=== PATIENT | female | born 1985 | race Caucasian/White ===

== ENCOUNTER 2022-11-13 22:35 | Emergency (ER) | payer OTHER, SELFPAY ==
[2022-11-13 22:47] VITALS: BP 141/99; PULSE 68; RESP 16; TEMP 36.4; O2SAT 100
--- NOTE | 2022-11-13 23:36 | ED_ITS ---
HPI - Headache General Chief Complaint: Headache Stated Complaint: Migraine, Vomiting Time Seen by Provider: 11/13/22 23:35 Source: patient Mode of arrival: Ambulatory Limitations: no limitations History of Present Illness HPI Narrative: This is a 37-year-old female with history of migraine, a single seizure 10 years ago on Lamictal, anxiety/depression and hypertension. Patient notes she did start lisinopril 2 days ago as her blood pressures been elevated recently. She is had more frequent migraines with about 1 weekly for the past 2 or 3 weeks. She does follow with neurologist annually in [place] where she lives. Patient states no fevers or chills. Typical location of headache although migraine little bit farther back. The intensity is its typical but will not break or stop. She had vomiting today. She is not had any diarrhea but she states last 2 prior seizures she had bodily fluids coming out of every orifice. Patient denies nasal congestion, no chest pain or shortness of breath. She denies any numbness, tingling or weakness. No vision changes. No difficulty with gait or ambulation. She is not on a daily antimigraine medication and states her neurologist who said she would like her blood pressure better controlled before starting one. No tobacco, alcohol or illicit. No known drug allergies. Patient is currently visiting family for the holidays she lives in [place] and was returning November 22. Related Data Previous Rx's Medication Instructions Recorded metoclopramide HCl 10 mg tablet 10 mg PO Q6H PRN nausea and 11/14/22 (Reglan) vomiting #10 tabs Allergies Allergy/AdvReac Type Severity Reaction Status Date / Time No Known Drug Allergies Allergy Verified 11/14/22 00:10 Review of Systems Review of Systems ROS Unobtainable: All systems reviewed & are unremarkable except as noted in HPI and below Patient History Social History Smoking Status: Never smoker Smoking Status: Never smoker alcohol intake frequency: holidays/special occasions only Substance Use Type: does not use Exam Narrative Exam Narrative: GEN: well nourished, well appearing female, alert and oriented x 3, patient appears to be in mild distress. HEENT: Atraumatic, pupils are equal round reactive to light, extraocular movements are intact, nares are clear, TMs are clear with no fluid, there is no conjunctival pallor. Throat is clear without any exudates, erythema, tonsillar enlargement or uvular deviation, no facial droop. No meningeal signs. HEART: Regular rate and rhythm without murmur, clicks, rubs. Pulses are equal in upper and lower extremities LUNGS:Lungs clear to auscultation, no wheezes, rales, crackles, chest moves symmetrically ABD:bowel sounds normal, soft, non-tender, no guarding, rebound, rigidity, no masses noted, no hepatosplenomegaly :No CVA tenderness MSCL: Non-tender, no muscle atrophy, muscles strength 5/5 upper and lower extremities, full range of motion, normal gait NEURO:CN 2-12 intact, sensation normal, finger nose finger test normal, heel rucker test normal, GCS 15. SKIN: No rash, erythema or other skin changes. Initial Vital Signs Initial Vital Signs: Vital Signs Temperature 97.6 F 11/13/22 22:47 Pulse Rate 68 11/13/22 22:47 Respiratory Rate 16 11/13/22 22:47 Blood Pressure 141/99 H 11/13/22 22:47 Pulse Oximetry 100 11/13/22 22:47 Oxygen Delivery Method 11/13/22 22:47 Course Orders Ordered: Discontinued Medications Dexamethasone (Dexamethasone 10 Mg/Ml Vial) 10 mg IV NOW ONE Stop: 11/14/22 00:03 Last Admin: 11/14/22 00:09 Dose: 10 mg Documented By: ALVARO Sodium Chloride (Normal Saline 0.9%) 1,000 mls @ 1,000 mls/hr IV BOLUS ONE Stop: 11/14/22 01:01 Last Infusion: 11/14/22 01:18 Dose: 0 mls/hr Documented By: Admin: 11/14/22 00:09 Dose: 1,000 mls/hr Documented By: ALVARO Ketorolac Tromethamine (Ketorolac 30 Mg/Ml Vial) 15 mg IV NOW ONE Stop: 11/14/22 00:03 Last Admin: 11/14/22 00:09 Dose: 15 mg Documented By: ALVARO Metoclopramide HCl (Metoclopramide 10 Mg/2 Ml Inj) 10 mg IV NOW ONE Stop: 11/14/22 00:03 Last Admin: 11/14/22 00:10 Dose: 10 mg Documented By: ALVARO Reevaluation(s) Reevaluation #1: Patient is feeling better. Would like to return home. Discussed prescription for Reglan that she can take with our Tylenol or ibuprofen paraffin/Excedrin as needed. Will send a [facility]. Return precautions. She already has follow-up set up and has been in contact with her neurologist. Time: 01:07 Vital Signs Vital signs: Vital Signs - 8 hr 11/13/22 22:47 11/14/22 01:18 Temperature 97.6 F Pulse Rate 68 78 Respiratory Rate 16 16 Blood Pressure 141/99 H 115/65 Pulse Oximetry 100 97 Oxygen Delivery Method Room Air Room Air MDM - Headache MDM Narrative Medical decision making narrative: This is a 37-year-old female with history of migraines who is had some increased in frequency with weekly headaches she states today has not been responding to Tylenol, ibuprofen she did not have any Excedrin migraine with her since she is been traveling. She other than having some increasing frequency has not had any other acute changes she does follow with a neurologist. She is on Lamictal she states she would a seizure 10 years ago never had another 1 but has not annual visit and continues this medication. She does note she recently was started on lisinopril 2 days ago but this does not coincide with the other changes with her migraines. She has not had any infectious type symptoms, no other acute neurologic changes. Discussed with patient plan for pain management, fluids, Toradol Reglan and a dose of dexamethasone. Reassessed Discharge Plan Departure Patient Disposition: Home Clinical Impression: Migraine Instructions: DI for Migraine Activity Restrictions/Additional Instructions: I hope you continue to feel better. You may take Reglan 1 tablet every 6 hours as needed for nausea vomiting associated with her migraines. You can take Tylenol up to a 1000 mg with this, ibuprofen up to 800 mg or Excedrin migraine for symptoms. Prescription sent to [facility] in [place]. Please return for fevers, rapidly worsening headaches, sudden changes, new numbness, tingling weakness, passing out, sudden vision changes, persistent vomiting, or other new or concerning changes. Prescriptions: New metoclopramide HCl [Reglan] 10 mg tablet 10 mg PO Q6H PRN (Reason: nausea and vomiting) Qty: 10 0RF Visit Report Forms: Patient Portal/API
[2022-11-14] MEDS: SODIUM CHLORIDE 0.9% 1,000 ML 1000 ML IV (00:09)
[2022-11-14] MEDS: KETOROLAC 30 MG/ML VIAL 15 MG IV (00:09)
[2022-11-14] MEDS: DEXAMETHASONE 10 MG/ML VIAL IV (00:09)
[2022-11-14] MEDS: METOCLOPRAMIDE 10 MG/2 ML INJ IV (00:10)
[2022-11-14 01:18] VITALS: BP 115/65; PULSE 78; RESP 16; O2SAT 97
== END 2022-11-14 01:20 | disposition home or self-care (01) ==
PROVIDERS: Emergency Provider Emergency Medicine
DX: G43.909 Migraine, unspecified, not intractable, without status migrainosus (principal)
CPT/HCPCS: 36415; 96361; 96374; 96375; 99284; J1100; J1885; J2765